=== PATIENT | male | born 1935 | race Caucasian/White ===

== ENCOUNTER → 2020-09-29 | Outpatient (CLI) | payer MEDICARE, BC, OTHER ==
[~2020-09-29] MED LIST: AMLODIPINE BESYL5 MG PO; ARICEPT5 MG PO; ASPIRIN EC81 MG PO; BEET EXTRACT PO; CLOPIDOGREL75 MG PO; COLACE 100MG C100 MG PO; CRESTOR20 MG PO; DEXILANT60 MG PO; DOCUSATE SODIU100 MG PO; DONEPEZIL HCL5 MG PO; DRONABINOL2.5 MG PO; ESCITALOPRAM OX20 MG PO; FAMOTIDINE40 MG PO; FIBER LAXATIVE500 MG PO; FIBER0.52 GM PO; FIBER500 MG PO; FLOMAX 0.4 MG0.4 MG PO; INTRINSI B12-F1 EACH PO; MEGESTROL400 MG/12 PO; METOPROLOL TART25 MG PO; MULTIPLE VITAM1 EAC1 PO; MULTIVITAMINS1 EAC1 PO; NORCO 7.5-3251 EACH PO; NORVASC 5 MG TAB5 MG PO; PLAVIX 75 MG TA75 MG PO; PLAVIX75 MG PO; PROTONIX 40 MG40 M1 PO; PROTONIX40 MG PO; QUESTRAN LIGHT 44 GM PO; TAMSULOSIN HCL0.4 MG PO; THERA-TABS1 EACH PO; TOPROL XL25 MG PO; TRAMADOL HCL50 MG PO; TYLENOL PM EX-1 EACH PO; VITAMIN B-121000 MC3 PO; VITAMIN B-121000 MCG PO
== END ==
LOC: MRI 08:22
DX: K80.50 Calculus of bile duct without cholangitis or cholecystitis without obstruction (principal)
CPT/HCPCS: 36415; 74181; 80076

== ENCOUNTER → 2020-10-06 | Day surgery (SDC) | payer MEDICARE, BC, OTHER | END | disposition home or self-care (01) | LOC: OR 07:42 | DX: K80.50 Calculus of bile duct without cholangitis or cholecystitis without obstruction (principal); K26.7 Chronic duodenal ulcer without hemorrhage or perforation; K29.80 Duodenitis without bleeding; I13.0 Hypertensive heart and chronic kidney disease with heart failure and stage 1 through stage 4 chronic kidney disease, or unspecified chronic kidney disease; N18.30 Chronic kidney disease, stage 3 unspecified; N17.0 Acute kidney failure with tubular necrosis; I25.10 Atherosclerotic heart disease of native coronary artery without angina pectoris; D63.1 Anemia in chronic kidney disease; D62 Acute posthemorrhagic anemia; K92.1 Melena; R79.89 Other specified abnormal findings of blood chemistry; E78.00 Pure hypercholesterolemia, unspecified; Z79.891 Long term (current) use of opiate analgesic; Z79.02 Long term (current) use of antithrombotics/antiplatelets; Z79.899 Other long term (current) drug therapy; Z86.16 Personal history of COVID-19; Z87.891 Personal history of nicotine dependence | CPT/HCPCS: 36415; 74330; 80076; 82150; 83690; 85610; C1769; C2617; J0295; J2704; J7040; J7120; Q9962 ==

== ENCOUNTER → 2021-01-04 | Outpatient (CLI) | payer MEDICARE, BC, OTHER | LOC: HEART 5 09:35 | DX: R06.02 Shortness of breath (principal); I08.1 Rheumatic disorders of both mitral and tricuspid valves | CPT/HCPCS: 93306 ==

== ENCOUNTER → 2021-02-25 | Outpatient (CLI) | payer MEDICARE, BC, OTHER ==
[2021-02-25 16:48] LABS: ADENOVIRUS F 40/41 Not Detected (Negative); ASTROVIRUS Not Detected (Negative); CAMPYLOBACTER Not Detected (Negative); CLOSTRIDIUM DIFFICILE TOX A/B Not Detected (Negative); CRYPTOSPORIDIUM Not Detected (Negative); E.COLI 0157 Not Detected (Negative); ENTAMOEBA HISTOLYTICA Not Detected (Negative); ENTEROAGGREGATIVE E.COLI (EAEC Not Detected (Negative); ENTEROPATHOGENIC E.COLI (EPEC) Not Detected (Negative); ENTEROTOXIGENIC E.COLI (ETEC) Not Detected (Negative); GIARDIA LAMBLIA Not Detected (Negative); NOROVIRUS GI/GII Not Detected (Negative); PLESIOMONAS SHIGELLOIDES Not Detected (Negative); ROTOVIRUS A Not Detected (Negative); SALMONELLA Not Detected (Negative); SAPOVIRUS Not Detected (Negative); SHIG/ENTEROINVAS.ECOLI (EIEC) Not Detected (Negative); SHIGA-LIK TOX.PRO.E.COLI (STEC Not Detected (Negative); VIBRIO Not Detected (Negative); VIBRIO CHOLERAE Not Detected (Negative); YERSINIA ENTEROCOLITICA Not Detected (Negative)
== END ==
LOC: LBRF 15:56
PROVIDERS: Internal Medicine Gastroenterology
DX: R19.5 Other fecal abnormalities (principal)
CPT/HCPCS: 87507

== ENCOUNTER → 2021-04-06 | Day surgery (SDC) | payer MEDICARE, BC | END | disposition home or self-care (01) | LOC: OR 06:46 | DX: K57.30 Diverticulosis of large intestine without perforation or abscess without bleeding (principal); K64.0 First degree hemorrhoids; I25.10 Atherosclerotic heart disease of native coronary artery without angina pectoris; I12.9 Hypertensive chronic kidney disease with stage 1 through stage 4 chronic kidney disease, or unspecified chronic kidney disease; N18.30 Chronic kidney disease, stage 3 unspecified; D63.1 Anemia in chronic kidney disease; E78.00 Pure hypercholesterolemia, unspecified; K21.9 Gastro-esophageal reflux disease without esophagitis; Z87.891 Personal history of nicotine dependence; Z86.73 Personal history of transient ischemic attack (TIA), and cerebral infarction without residual deficits; Z79.82 Long term (current) use of aspirin; Z79.899 Other long term (current) drug therapy | CPT/HCPCS: J2704; J7040 ==